=== PATIENT | female | born 1965 | race Caucasian/White ===

== ENCOUNTER 2021-07-19 05:55 | Day surgery (SDC) | payer MEDICARE, OTHER ==
[~2021-07-19] VITALS: Ht 170.2 cm; Wt 54.5 kg
[~2021-07-19 05:55] MED LIST: ABILIFY20 MG PO; ACETAMINOPHEN500 MG PO
[2021-07-19] MEDS ORDERED: AMANTADINE100 MG PO (05:56)
[2021-07-19] MEDS ORDERED: CALCIUM CARBON600 MG PO (05:56)
[2021-07-19] MEDS ORDERED: D3-501250 MCG PO (05:57)
[2021-07-19] MEDS ORDERED: DIVALPROEX SOD500 MG PO (05:58)
[2021-07-19] MEDS ORDERED: DAILY VALUE1 EACH PO (05:58)
[2021-07-19] MEDS ORDERED: GABAPENTIN300 MG PO (05:59)
[2021-07-19] MEDS ORDERED: FUROSEMIDE20 MG PO (05:59)
[2021-07-19] MEDS ORDERED: ESCITALOPRAM OX20 MG PO (05:59)
[2021-07-19] MEDS ORDERED: LEVOTHYROXINE25 MC1 PO (06:00)
[2021-07-19] MEDS ORDERED: IPRAT-ALBUT 0.5-3 ML INH (06:00)
[2021-07-19] MEDS ORDERED: MAGNESIUM100 MG PO (06:01)
[2021-07-19] MEDS ORDERED: CLARITIN10 MG PO (06:01)
[2021-07-19] MEDS ORDERED: MILK OF MA400 MG/5 M PO (06:02)
[2021-07-19] MEDS ORDERED: NYSTATIN-TRIAMC15 GM TOP (06:03)
[2021-07-19] MEDS ORDERED: OMEPRAZOLE20 MG PO (06:03)
[2021-07-19] MEDS ORDERED: PROAIR HFA8.5 GM INH (06:04)
[2021-07-19] MEDS ORDERED: K-TAB ER20 MEQ PO (06:04)
[2021-07-19] MEDS ORDERED: TRAZODONE HCL150 MG PO (06:05)
[2021-07-19] MEDS ORDERED: TRILEPTAL300 MG PO (06:06)
--- NOTE | 2021-07-19 09:13 | NUR ---
07/19/21 0913 Kathleen Kent 0834- PT ARRIVES TO PACU NONAROUSABLE TO NOXIOUS STIMULI WITH AN OPA IN PLACE. PULSE OX NOT READING ACCURATELY ON PT'S FINGERS. EAR PROBE PLACED. OXYGEN SAT MID 90'S ON 15L VIA MASK. JAW THRUST BEING PERFORMED TO MAINTAIN PATENT AIRWAY. OXYGEN SAT INCREASED TO 96-98% WITH THIS.
--- NOTE | 2021-07-19 11:05 | NUR ---
HAS CAREGIVER KISHAN WHO ANSWERS FOR PT BUT PT DOES ANSWER SOME QUESTIONS. HAVE CHANGED ATTENDS. ASSISTED WITH DRESSING. TOOK H2O AND JELLO.
== END 2021-07-19 11:00 | disposition home or self-care (01) ==
LOC: OPS 05:55 → DS 05:55 → OPS 06:45 → DS 09:00 → OPS 11:00
PROVIDERS: ATTEND Dentist General Practice
PROC: 0CRWXJ1 Replacement of Upper Tooth, Multiple, with Synthetic Substitute, External Approach (ICD-10-PCS; 2021-07-19)
PROC: 0CCWXZ2 Extirpation of Matter from Upper Tooth, All, External Approach (ICD-10-PCS; 2021-07-19)
PROC: 0CCXXZ2 Extirpation of Matter from Lower Tooth, All, External Approach (ICD-10-PCS; 2021-07-19)
PROC: 0CRWXJ1 Replacement of Upper Tooth, Multiple, with Synthetic Substitute, External Approach (ICD-10-PCS; principal; 2021-07-19 06:45)
DX: K02.9 Dental caries, unspecified (principal); K05.10 Chronic gingivitis, plaque induced; J45.909 Unspecified asthma, uncomplicated; E11.43 Type 2 diabetes mellitus with diabetic autonomic (poly)neuropathy; K31.84 Gastroparesis; K21.9 Gastro-esophageal reflux disease without esophagitis; G81.94 Hemiplegia, unspecified affecting left nondominant side; F07.81 Postconcussional syndrome; E03.9 Hypothyroidism, unspecified; R47.1 Dysarthria and anarthria; G40.909 Epilepsy, unspecified, not intractable, without status epilepticus; F31.9 Bipolar disorder, unspecified; F10.21 Alcohol dependence, in remission; F17.200 Nicotine dependence, unspecified, uncomplicated; Z88.6 Allergy status to analgesic agent; Z88.0 Allergy status to penicillin
CPT/HCPCS: 00170; 70310; 80048; 85025; J0330; J1100; J1885; J2250; J2405; J2704; J2765; J3010; J7121

== ENCOUNTER 2024-11-15 21:16 | Emergency (ER) | payer MEDICARE, OTHER ==
[~2024-11-15] VITALS: Ht 170.2 cm; Wt 57.6 kg
[~2024-11-15 21:16] MED LIST changes: +AMANTADINE100 MG PO; +CALCIUM CARBON600 MG PO; +CEPHALEXIN500 MG PO; +CLARITIN10 MG PO; +CRANBERRY450 M2 PO; +D3-501250 MCG PO; +DAILY VALUE1 EACH PO; +DIVALPROEX SOD500 MG PO; +ESCITALOPRAM OX20 MG PO; +FERROUS SULFAT325 M2 PO; +FUROSEMIDE20 MG PO; +GABAPENTIN300 MG PO; +IPRAT-ALBUT 0.5-3 ML INH; +K-TAB ER20 MEQ PO; +LACTOSE MISC; +LACTULOSE10 GM/15 M PO; +LEVETIRACETAM500 M1 PO; +LEVOTHYROXINE25 MC1 PO; +MAGNESIUM100 MG PO; +MILK OF MA400 MG/5 M PO; +NYSTATIN-TRIAMC15 GM TOP; +OMEPRAZOLE20 MG PO; +PROAIR HFA8.5 GM INH; +TRAZODONE HCL150 MG PO; +TRILEPTAL300 MG PO; +ZONISAMIDE100 MG PO
[2024-11-15] MEDS ORDERED: REXULTI2 MG PO (21:46)
[2024-11-15 22:08] VITALS: BP 128/92
== END 2024-11-15 22:08 | disposition home or self-care (01) ==
LOC: ED 21:16
DX: S00.83XA Contusion of other part of head, initial encounter (principal); I69.354 Hemiplegia and hemiparesis following cerebral infarction affecting left non-dominant side; Z88.0 Allergy status to penicillin; Z88.6 Allergy status to analgesic agent; Z79.899 Other long term (current) drug therapy; W18.39XA Other fall on same level, initial encounter
CPT/HCPCS: 99284

== ENCOUNTER 2024-12-15 11:02 | Emergency (ER) | payer MEDICARE, OTHER ==
[~2024-12-15] VITALS: Ht 170.2 cm; Wt 69.9 kg
[~2024-12-15 11:02] MED LIST changes: +REXULTI2 MG PO
[2024-12-15] MEDS ORDERED: REXULTI4 MG PO (11:54)
[2024-12-15] MEDS ORDERED: PANTOPRAZOLE SODIUM 40 MG/10 ML VIAL IV ONE (12:00)
[2024-12-15] MEDS ORDERED: SODIUM CHLORIDE 0.9% 1,000 ML IV ONE (12:00)
[2024-12-15] MEDS ORDERED: ondansetron HCL 4 MG/2 ML VIAL IV ONE (12:00)
[2024-12-15 12:49] LABS: BASOPHILS 0.4 % (0-2); EOSINOPHILS 1.6 % (0-6); HEMATOCRIT 38.5 % (35.0-50.0); HEMOGLOBIN 12.9 g/dL (12.0-18.0); LYMPHOCYTES 18.1 % (24-44); MCH 31.5 (27-36); MCHC 33.5 g/dl (30-36); MONOCYTES 5.5 % (0-12); NEUTROPHILS 74.4 % (39-80); PLATELET COUNT 280 K/uL (140-440); RBC 4.09 M/ul (4.3-5.7); RDW 14.1 (10.5-15.0)
[2024-12-15 13:11] LABS: ALBUMIN 3.3 g/dL (3.4-5.0); ALBUMIN/GLOBULIN RATIO 1.03 (1.1-2.4); ANION GAP 12.1 (7-21); BILIRUBIN, TOTAL 0.3 mg/dL (0.2-1.0); BUN/CREATININE RATIO 35.71 (6.0-28.6); CREATININE, SERUM 0.7 mg/dL (0.55-1.02); POTASSIUM 4.1 mmol/L (3.5-5.1); PROTEIN, TOTAL 6.5 g/dL (6.4-8.2)
[2024-12-15] MEDS ORDERED: ONDANSETRON ODT8 MG PO (13:48)
--- NOTE | 2024-12-15 14:04 | EKG ---
[facility] [address] [facility] [place], [place] [address] Signed Sinus rhythm with occasional premature ventricular complexes Left axis deviation Prolonged QT Abnormal ECG No previous ECGs available Confirmed by Eddi Manzano MD ([id number]) on 12/15/2024 2:04:01 PM Electronically Signed By: EDDI MANZANO MD 12/15/24 1404 PATIENT NAME: JOSESITO FELIX Electrocardiogram DATE OF : 69 PHYSICIAN: EDDI MANZANO MD REPORT #: [id number] REPORT IS CONFIDENTIAL AND NOT TO BE RELEASED WITHOUT AUTHORIZATION
[2024-12-15 14:08] VITALS: BP 117/68
== END 2024-12-15 14:08 | disposition home or self-care (01) ==
LOC: ED 11:02
PROVIDERS: Emergency Medicine
DX: R04.0 Epistaxis (principal); E87.0 Hyperosmolality and hypernatremia; R11.2 Nausea with vomiting, unspecified; Z88.0 Allergy status to penicillin; Z88.8 Allergy status to other drugs, medicaments and biological substances; Z79.899 Other long term (current) drug therapy
CPT/HCPCS: 36415; 71045; 80053; 84484; 85025; 93005; 93010; 96374; 96375; 99284-25; J2405; J2470; J7030

== ENCOUNTER 2025-02-05 21:31 | Emergency (ER) | payer MEDICARE, OTHER ==
[~2025-02-05] VITALS: Ht 170.2 cm; Wt 60.0 kg
[~2025-02-05 21:31] MED LIST changes: +ONDANSETRON ODT8 MG PO; +REXULTI4 MG PO
[2025-02-06] MEDS ORDERED: PROCTO-MED HC28 GM (00:04)
[2025-02-06] MEDS ORDERED: SALINE MIST44 ML (00:04)
[2025-02-06] MEDS ORDERED: VITAMIN B2100 MG (00:04)
[2025-02-06] MEDS ORDERED: MIRALAX119 GM (00:05)
[2025-02-06] MEDS ORDERED: MAGNESIUM OXID400 M1 (00:05)
[2025-02-06] MEDS ORDERED: AYR SALINE NA14.1 GM (00:06)
[2025-02-06] MEDS ORDERED: ICY HOT 10-30%85 GM (00:06)
[2025-02-06] MEDS ORDERED: AFRIN15 M1 (00:06)
[2025-02-06 00:27] LABS: HEMOGLOBIN 14.1 g/dL (12.0-18.0)
[2025-02-06 00:30] LABS: BASOPHILS 0.3 % (0-2); EOSINOPHILS 3.9 % (0-6); HEMATOCRIT 41.9 % (35.0-50.0); MCH 31.2 (27-36); MCHC 33.7 g/dl (30-36); MCV 92.6 fl (81-99); MONOCYTES 8.6 % (0-12); NEUTROPHILS 61.2 % (39-80); PLATELET COUNT 277 K/uL (140-440); RBC 4.53 M/ul (4.3-5.7); RDW 13.7 (10.5-15.0)
[2025-02-06 00:42] LABS: ALBUMIN 3.7 g/dL (3.4-5.0); ALBUMIN/GLOBULIN RATIO 1.16 (1.1-2.4); ANION GAP 9.5 (7-21); BILIRUBIN, TOTAL 0.2 mg/dL (0.2-1.0); CALCIUM 9.1 mg/dL (8.5-10.1); CREATININE, SERUM 0.76 mg/dL (0.55-1.02); POTASSIUM 3.5 mmol/L (3.5-5.1); PROTEIN, TOTAL 6.9 g/dL (6.4-8.2)
[2025-02-06 01:28] VITALS: BP 114/102
== END 2025-02-06 01:27 | disposition home or self-care (01) ==
LOC: ED 21:31
PROVIDERS: Internal Medicine
DX: S62.325A Displaced fracture of shaft of fourth metacarpal bone, left hand, initial encounter for closed fracture (principal); Z86.73 Personal history of transient ischemic attack (TIA), and cerebral infarction without residual deficits; Z88.0 Allergy status to penicillin; Z88.8 Allergy status to other drugs, medicaments and biological substances; Z79.899 Other long term (current) drug therapy; X58.XXXA Exposure to other specified factors, initial encounter
CPT/HCPCS: 36415; 73130; 80053; 83605; 84550; 85025; 99283

== ENCOUNTER 2025-03-31 21:23 | Emergency (ER) | payer MEDICARE, OTHER ==
[~2025-03-31] VITALS: Ht 170.2 cm; Wt 54.0 kg
[~2025-03-31 21:23] MED LIST changes: +AFRIN15 M1; +AYR SALINE NA14.1 GM; +ICY HOT 10-30%85 GM; +MAGNESIUM OXID400 M1; +MIRALAX119 GM; +PROCTO-MED HC28 GM; +SALINE MIST44 ML; +VITAMIN B2100 MG
[2025-04-01 01:13] VITALS: BP 119/84
== END 2025-04-01 01:14 | disposition home or self-care (01) ==
LOC: ED 21:23
DX: S93.602A Unspecified sprain of left foot, initial encounter (principal); X58.XXXA Exposure to other specified factors, initial encounter; Z79.899 Other long term (current) drug therapy; Z88.0 Allergy status to penicillin; Z88.6 Allergy status to analgesic agent; Z86.73 Personal history of transient ischemic attack (TIA), and cerebral infarction without residual deficits
CPT/HCPCS: 73630; 99283